=== PATIENT | female | born 1960 | race Caucasian/White ===

== ENCOUNTER 2021-12-13 18:39 | Emergency (ER) | payer OTHER ==
[2021-12-13 18:52] VITALS: BP 123/74; PULSE 61; TEMP 98.4; BMI 25.6
[2021-12-13] MEDS ORDERED: ACYCLOVIR 400 MG TABLET PO ONE (19:44)
[2021-12-13] MEDS ORDERED: ACYCLOVIR 400 MG TABLET ONE (19:46)
== END 2021-12-13 19:52 | disposition home or self-care (01) ==
LOC: FER 18:39
DX: B02.9 Zoster without complications (principal)
CPT/HCPCS: 99283-25

== ENCOUNTER 2024-01-06 17:00 | Emergency (ER) | payer OTHER ==
[2024-01-06 17:28] VITALS: BP 132/84; PULSE 85; RESP 18; TEMP 97.8; BMI 25.9
[2024-01-06] MEDS ORDERED: LIDOCAINE 5% TOPICAL PATCH ONE (17:53)
[2024-01-06] MEDS ORDERED: IBUPROFEN 600 MG TABLET (FP) PO ONE (17:54)
[2024-01-06] MEDS: IBUPROFEN 600 MG TABLET (FP) PO ONE (17:55)
[2024-01-06] MEDS: LIDOCAINE 5% TOPICAL PATCH TP ONE (18:20)
[2024-01-06] MEDS ORDERED: LIDOCAINE PATCH REMOVAL MC SCH (22:00)
== END 2024-01-06 19:10 | disposition home or self-care (01) ==
LOC: FER 17:00
DX: M79.651 Pain in right thigh (principal); M54.50 Low back pain, unspecified; R20.0 Anesthesia of skin; W01.0XXA Fall on same level from slipping, tripping and stumbling without subsequent striking against object, initial encounter
CPT/HCPCS: 72170-TC-FY; 73502-TC-RT-FY; 73552-TC-RT-FY; 99283-25